=== PATIENT | male | born 1970 | race Caucasian/White ===

== ENCOUNTER 2020-07-28 07:00 | Outpatient (CLI) | payer BC | END 2020-07-28 23:59 | disposition home or self-care (01) | LOC: COV 07:00 | PROVIDERS: ATTEND Surgery | DX: Z01.812 Encounter for preprocedural laboratory examination (principal); Z12.11 Encounter for screening for malignant neoplasm of colon; Z13.810 Encounter for screening for upper gastrointestinal disorder; Z20.822 Contact with and (suspected) exposure to COVID-19 ==

== ENCOUNTER 2020-08-02 10:30 | Day surgery (SDC) | payer BC ==
[2020-08-02] MEDS ORDERED: LACTATED RINGERS 1,000 ML IV ONE ×4 (11:23→13:10)
[2020-08-02] MEDS ORDERED: LIDO GARGLE 30 ML BOTTLE ONE (12:15)
[2020-08-02] MEDS ORDERED: fentaNYL 250 MCG/5 ML VIAL ONE (12:18)
[2020-08-02] MEDS ORDERED: MIDAZOLAM 2 MG/2 ML VIAL ONE ×3 (12:18→12:40)
[2020-08-02] MEDS ORDERED: LIDO GARGLE 30 ML BOTTLE PO ONE (12:38)
[2020-08-02] MEDS ORDERED: BENZOCAINE/TETRACAINE/BUTAMBEN 20 GM TOP ONE (12:38)
[2020-08-02 13:57] VITALS: BP 125/66
== END 2020-08-02 10:31 | disposition home or self-care (01) ==
LOC: SDS 10:30
PROVIDERS: ATTEND Surgery
DX: Z12.11 Encounter for screening for malignant neoplasm of colon (principal); K29.70 Gastritis, unspecified, without bleeding; K44.9 Diaphragmatic hernia without obstruction or gangrene; I10 Essential (primary) hypertension; H54.7 Unspecified visual loss; Z80.0 Family history of malignant neoplasm of digestive organs
CPT/HCPCS: 43235; 45378; A9270; J3010; J7120

== ENCOUNTER 2022-02-17 19:51 | Emergency (ER) | payer BC ==
--- NOTE | 2022-02-17 20:37 | ED Physician Documentation ---
PD HPI Fall - Stated complaint Stated Complaint: GLF, CHEST PAIN ON RT - Chief complaint Chief Complaint: Trauma Ch/Bk - History obtained from History obtained from: Patient - History of Present Illness Mechanism of injury: Slipped Fall distance: Standing position Where injury occurred: [place] - onset: How many days ago (2) Injury(ies) location: Chest Pain level max: 8 Pain level now: 4 Quality of pain: Pain, Sharp Associated symptoms: No: LOC, Neck pain, Dyspnea Symptoms improve with: Rest Worsens with: Movement, Palpation Contributing factors: No: Anticoagulated, Intoxicated Similar symptoms before: Has not had sx before Recently seen: Not recently seen - Additional information Additional information: patient was backpacking 2 days ago, slipped on a wet log and fell, striking his right chest wall against another log. He c/o right anterolateral chest pain since he fell, distinctly related to movement, palpation, and worse with deep breath in. He does not feel short of breath (despite pleuritic component), has not had any coughing, and denies any other injury (specifically Review of Systems Constitutional: denies: Fever Cardiac: reports: Chest pain / pressure Respiratory: denies: Dyspnea, Cough, Hemoptysis GI: denies: Abdominal Pain, Nausea, Vomiting Musculoskeletal: reports: Reviewed and negative PD PAST MEDICAL HISTORY - Past Medical History Past Medical History: Yes Cardiovascular: Hypertension Respiratory: None Endocrine/Autoimmune: None GI: None : None HEENT: None Psych: None Musculoskeletal: None Derm: None - Past Surgical History Cardiovascular: Other - Present Medications Home Medications: Ambulatory Orders Medication Instructions Recorded Confirmed Cetirizine [ZyrTEC] 10 mg PO ONCE 08/02/20 02/17/22 lisinopriL [Prinivil] 10 mg PO DAILY 08/02/20 02/17/22 HYDROcod/ACETAM 5/325 [Cary 5/325] 1 - 2 tablet PO Q6H PRN #14 tablet 02/17/22 Rosuvastatin Calcium [Crestor] 40 mg PO DAILY 02/17/22 02/17/22 - Allergies Allergies/Adverse Reactions: Allergies Allergy/AdvReac Type Severity Reaction Status Date / Time No Known Drug Allergies Allergy Verified 02/17/22 20:02 - Social History Does the pt smoke?: No Smoking Status: Never smoker PD ED PE NORMAL - Vitals Vital signs reviewed: Yes - General General: Alert and oriented X 3, No acute distress (NAD at rest, appears uncomfortable (mild/moderate painful discomfort) with movement involving trunk), Well developed/nourished - Cardiac Cardiac: RRR, No murmur - Respiratory Respiratory: No respiratory distress, Clear bilaterally (but mildly diminished right breath sounds) - Abdomen Abdomen: Soft, Non tender PD ED PE EXPANDED - Cardiac Cardiac: Chest wall TTP (right anterolateral chest wall tenderness) Results - Vitals Vitals: Vital Signs - 24 hr 02/17/22 02/17/22 19:55 21:58 Temperature 37.0 C 36.6 C Heart Rate 83 63 Respiratory 18 16 Rate Blood Pressure 160/75 H 150/79 H O2 Saturation 100 97 Oxygen O2 Source Room air - Rads (name of study) chest xray with right ribs Radiology: Prelim report reviewed, See rad report PD MEDICAL DECISION MAKING - ED course Complexity details: reviewed results, re-evaluated patient, considered differential, d/w patient ED course: fall 2 days ago, c/o right chest wall pain. He was on a backpacking trip and was able to tolerate the pain but now that he has returned from the hike, he presents to ED for this ongoing pain. He is found to have fractures of the right fifth through eighth ribs without evidence of other injury such as pneumothorax. He declines narcotic pain medication; given 60mg IM toradol and reports adequate relief with this. Results d/w patient. I recommended vicodin take-home pack and rx for same, to be used if [id number] medications do not adequately control the pain and he is agreeable with this. Departure - Departure Disposition: 01 Home, Self Care Clinical Impression: Ribs, multiple fractures Condition: Good Instructions: ED Fx Rib Follow-Up: JANET LYLE PA [Primary Care Provider] - (7-10 days if symptoms have not r esolved ) Prescriptions: HYDROcod/ACETAM 5/325 [Cary 5/325] 1 - 2 tablet PO Q6H PRN #14 tablet PRN Reason: Pain Comments: The xrays show fractures of the right 5th through 8th ribs (thus four broken ribs). These should heal slowly over the next several days, although sometimes it takes longer for the pain to completely subside. A prescription for hydrocodone/acetaminophen (vicodin, narcotic pain medication) has been electronically submitted to [facility] pharmacy in [place]. Discharge Date/Time: 02/17/22 21:59
[2022-02-17] MEDS ORDERED: KETOROLAC 60 MG/2 ML VIAL IM STA (20:48)
--- NOTE | 2022-02-17 21:21 | XRAY Report ---
PROCEDURE: Ribs w/PA Chest RT INDICATIONS: fall, right chest pain/tenderness TECHNIQUE: 2 views of the right were acquired, along with a single view chest. COMPARISON: None. FINDINGS: Surgical changes and devices: None. Bones and chest wall: There are mildly displaced fractures of the right fifth through eighth ribs ant erolaterally. No suspicious bony lesions. Overlying soft tissues appear unremarkable. Lungs and pleura: No pleural effusions or pneumothorax. Lungs appear clear. Mediastinum: Mediastinal contours appear normal. Heart size is normal. IMPRESSION: 1. Mildly displaced fractures of the right fifth through eighth ribs anterolaterally. Reviewed by: Roberto Clemons MD on 02/17/2022 9:20 PM PST Approved by: Roberto Clemons MD on 02/17/2022 9:20 PM [facility] Station ID: [id number]
[2022-02-17] MEDS ORDERED: HYDROcod/ACET 5/325 Prepack 4 PO STA (21:46)
[2022-02-17 21:59] VITALS: BP 150/79
== END 2022-02-17 21:59 | disposition home or self-care (01) ==
LOC: ED 19:51
DX: S22.41XA Multiple fractures of ribs, right side, initial encounter for closed fracture (principal); W01.198A Fall on same level from slipping, tripping and stumbling with subsequent striking against other object, initial encounter; Y93.01 Activity, walking, marching and hiking; Y92.830 Public park as the place of occurrence of the external cause; I10 Essential (primary) hypertension
CPT/HCPCS: 96372; 99283